=== PATIENT | female | born 1950 | race African-American/Black ===

== ENCOUNTER 2018-09-06 09:29 | Outpatient (CLI) | payer MEDICARE ==
--- NOTE | 2018-09-06 10:08 | Cat Scan Report ---
CT HEAD WITHOUT CONTRAST: HISTORY: Headache. TECHNIQUE: Sequential 2.5mm CT images. COMPARISON: none. FINDINGS: Cerebral Parenchyma: Within normal limits. Cerebellum: Within normal limits. Brainstem: Within normal limits. Ventricles: Normal. Sella: Normal. Extra-axial spaces: Normal. Basal Cisterns: Normal. Intracranial Hemorrhage: None. Midline Shift: None. Calvarium: Normal. Sinuses: Normal. Mastoid Air Cells: Normal. Visualized Orbits: Normal. IMPRESSION: Cranial CT scan within normal limits.
== END 2018-09-06 09:30 | disposition home or self-care (01) ==
LOC: CT 09:29
PROVIDERS: ATTEND Family Medicine
DX: H93.01 Transient ischemic deafness (principal); R51 Headache; R53.1 Weakness
CPT/HCPCS: 70450

== ENCOUNTER 2019-07-13 09:55 | Outpatient (CLI) | payer MEDICARE ==
--- NOTE | 2019-07-13 10:49 | Cat Scan Report ---
CT head without contrast CLINICAL HISTORY: Cognitive deficits, trigeminal neuralgia. Findings a colon the brain appears to demonstrate appropriate attenuation for age. The ventricular sy stem is within normal limits in size and configuration. There is no CT evidence of acute intracranial hemorrhage or significant mass effect. The visualized paranasal sinuses are clear. There is developm ental tortuosity of the vertebral basilar system. The visualized paranasal sinuses are clear. IMPRESSION: There is no CT evidence of acute intracranial process. Signer Name: Flex Olivo MD Signed: 07/13/2019 10:45 AM Workstation Name: [id number]
== END 2019-07-13 09:56 | disposition home or self-care (01) ==
LOC: CT 09:55
PROVIDERS: ATTEND Family Medicine
DX: G50.0 Trigeminal neuralgia (principal); I69.319 Unspecified symptoms and signs involving cognitive functions following cerebral infarction
CPT/HCPCS: 70450